=== PATIENT | female | born 1980 | race Two or more races ===

== ENCOUNTER 2017-12-07 21:08 | Inpatient (IN) | payer MEDICAID ==
[~2017-12-07] VITALS: Ht 152.4 cm; Wt 72.6 kg
--- NOTE | 2017-12-07 21:17 | NUR ---
PT BIB SELF C/O "ABD PAIN X1 HOUR; N/V" PT AOX3 RR EVEN AND UNLABORED. NO SOB NOTED. NAD NOTED. NO NVD AT THIS TIME. PT GOWNED AND PLACED ON MONITOR. DEMURRAGE CLERK DEGRASSI AT BEDSIDE FOR EVAL.
[2017-12-07 21:29] LABS: BASOPHILS # (AUTO) 0.1 /CMM (0.0-0.2); BASOPHILS % (AUTO) 0.4 % (0.0-2.0); EOSINOPHILS # (AUTO) 0.2 /CMM (0.0-0.7); EOSINOPHILS % (AUTO) 1.1 % (0.0-6.0); HEMATOCRIT 42 % (33-45); HEMOGLOBIN 14.2 g/dL (11.5-14.8); LYMPHOCYTES # (AUTO) 2.3 /CMM (0.8-4.8); LYMPHOCYTES % (AUTO) 15.6 % (20.0-44.0); MEAN CORPUSCULAR HEMOGLOBIN 27 PG (26.0-33.0); MEAN CORPUSCULAR HGB CONC 34 g/dl (31.0-36.0); MEAN CORPUSCULAR VOLUME 79 fL (82-100); MONOCYTES # (AUTO) 0.8 /CMM (0.1-1.30); NEUTROPHILS # (AUTO) 11.6 /CMM (1.8-8.9); NEUTROPHILS % (AUTO) 77.9 % (43.0-81.0); PLATELET COUNT (AUTO) 291 /CMM (150-450); RDW COEFFICIENT OF VARIATION 11.9 (11.5-15.0); RED BLOOD CELL COUNT(AUTO) 5.22 MIL/uL (4.0-5.2)
[2017-12-07] MEDS ORDERED: ONDANSETRON HCL/PF 4 MG/2 ML VIAL IVP ONE (21:30)
[2017-12-07] MEDS ORDERED: MORPHINE SULFATE INJ 2 MG/ML DISP.SYRIN IV ONE (21:30)
[2017-12-07] MEDS ORDERED: IV NS 0.9% 1,000 ML BAG IV ONE (21:30)
[2017-12-07] MEDS ORDERED: ONDANSETRON HCL/PF 4 MG/2 ML VIAL ONE (21:35)
[2017-12-07] MEDS ORDERED: MORPHINE SULFATE INJ 4 MG/ML DISP.SYRIN ONE (21:36)
[2017-12-07 21:40] LABS: APPEARANCE,URINE Clear (CLEAR); BILIRUBIN,URINE SMALL (NEGATIVE); BLOOD, URINE Negative Ery/uL (NEGATIVE); COLOR,URINE Yellow (YELLOW); KETONES,URINE Negative (NEGATIVE); LEUKOCYTE ESTERASE ,URINE Negative (NEGATIVE); NITRITE, URINE Negative (NEGATIVE); PH,URINE 5.5 (5.0-8.0); PROTEIN,URINE Negative (NEGATIVE); UGLUCOSE Negative (NEGATIVE); UROBILINOGEN,URINE 0.2 EU/dL (0.2)
--- NOTE | 2017-12-07 21:42 | NUR ---
MEDICATED PATIENT ORDERED.
--- NOTE | 2017-12-07 21:45 | NUR ---
BASIA AT BEDSIDE
[2017-12-07 21:48] LABS: ALBUMIN 4.2 g/dL (3.4-5.0); BILIRUBIN,DIRECT 0.1 mg/dL (0.0-0.2); BILIRUBIN,TOTAL 0.3 mg/dL (0.2-1.0); CALCIUM, SERUM 9.3 mg/dL (8.5-10.1); CREATININE 0.7 mg/dL (0.6-1.3); POTASSIUM 3.5 mmol/L (3.5-5.1)
[2017-12-07] MEDS ORDERED: LIDOCAINE 1%-EPI 1:100,000 20 ML VIAL ONE (21:48)
[2017-12-07 21:56] LABS: INR 0.92 (0.85-1.15)
--- NOTE | 2017-12-07 22:10 | NUR ---
CONSTANCE LYNCH ON THE PHONE WITH DR ARGUETA
--- NOTE | 2017-12-07 22:11 | NUR ---
CALLED [facility] FOR HIGHER LEVEL OF CARE TRANSPORTATION, I SPOKE WITH ANUM AND HE NOTIFIED ME THAT THEY HAVE NO AVAILABLE BEDS.
--- NOTE | 2017-12-07 22:42 | NUR ---
PAGED STEAM HAND CONSTANCE WINTER
--- NOTE | 2017-12-07 22:52 | NUR ---
CONSTANCE LYNCH ON THE PHONE WITH CONSTANCE WINTER REGARDING ADMISSION
--- NOTE | 2017-12-07 22:54 | NUR ---
PATIENT ASSIGNED MS 201 ADMITTING SLAB CONDITIONER SUPERVISOR TANNER WINTER
[2017-12-07 23:00] VITALS: BP 115/76
--- NOTE | 2017-12-07 23:14 | NUR ---
UPHOLSTERER INSIDE CATILAN AT BEDSIDE FOR EVAL.
--- NOTE | 2017-12-07 23:31 | NUR ---
REPORT GIVEN TO AMARILYS COBB FOR HERNAN.
--- NOTE | 2017-12-07 23:34 | NUR ---
PT TRANSFERRED VIA WC TO NE BED [id number]
[2017-12-08] VITALS: BP 115/76
--- NOTE | 2017-12-08 | NUR ---
MS CABINET PROFESSIONAL NOTES ADMITTED FROM ER PER WHEELCHAIR,WITH CHIEF COMPLAINTS OF ABDOMINAL PAIN X 1 HOUR,WITH N/V.AL/O X4,SPEAK WELSH,NO SKIN ISSUES.SALINE LOCK RIGHT AC INTACT AND PATENT.CALL LIGHT I REACH,NEEDS ANTICIPATED.
--- NOTE | 2017-12-08 | NUR ---
MS RN NOTES APPEARS WORRIED ABOUT ORDERED MEDICATIONS IF SHE REALLY NEEDS IT.CLAIMED SHE DOESNT HAVE INSURANCE.WILL REFER TO SOCIAL SERVICE FOR ASSISTANCE.
[2017-12-08] MEDS ORDERED: ONDANSETRON HCL/PF 4 MG/2 ML VIAL IVP PRN (00:30)
[2017-12-08] MEDS ORDERED: Z GUARD REMEDY 2 OZ OINT TP PRN (00:30)
[2017-12-08] MEDS ORDERED: ZOLPIDEM TARTRATE 5 MG TABLET PO PRN (00:30)
[2017-12-08] MEDS ORDERED: MAGNESIUM HYDROXIDE 30 ML UDC PO PRN (00:30)
[2017-12-08] MEDS ORDERED: ACETAMINOPHEN 325 MG TABLET PO PRN (00:30)
[2017-12-08] MEDS ORDERED: ENOXAPARIN SODIUM 40 MG/0.4 ML DISP.SYRIN SQ SCH (00:30)
[2017-12-08] MEDS ORDERED: HYDROCODONE/APAP 5/325MG 1 EACH TABLET PO PRN (00:30)
[2017-12-08] MEDS ORDERED: MAG HYDROX/AL HYDROX/SIMETH 30 ML UDC PO PRN (00:30)
[2017-12-08] MEDS ORDERED: MORPHINE SULFATE INJ 2 MG/ML DISP.SYRIN IV PRN (00:30)
[2017-12-08] MEDS ORDERED: PIPERACILLIN /TAZOBACTAM 3.375 G VIAL IV ONE (00:53)
[2017-12-08] MEDS ORDERED: PIPERACILLIN /TAZOBACTAM 3.375 G in IV D5W 100 ML IV ONE (01:00)
[2017-12-08] MEDS ORDERED: PIPERACILLIN /TAZOBACTAM 3.375 G in IV D5W 50 ML IV ONE (01:09)
[2017-12-08] MEDS: IV NS 0.9% 1,000 ML IV PRN ×2 (01:16→18:35)
--- NOTE | 2017-12-08 01:16 | NUR ---
MS RN NOTES STARTED ON NS 75ML/HR RATE ORDERED
--- NOTE | 2017-12-08 01:17 | NUR ---
MS RN NOTES STARTED ON ZOSYN 3.375GM IVPB ORDERED.NO ADVERSE REACTION NOTED.
[2017-12-08 06:29] LABS: BASOPHILS % (AUTO) 0.4 % (0.0-2.0); EOSINOPHILS # (AUTO) 0.1 /CMM (0.0-0.7); HEMATOCRIT 34 % (33-45); HEMOGLOBIN 11.4 g/dL (11.5-14.8); LYMPHOCYTES # (AUTO) 2.2 /CMM (0.8-4.8); LYMPHOCYTES % (AUTO) 24.5 % (20.0-44.0); MEAN CORPUSCULAR HEMOGLOBIN 28 PG (26.0-33.0); MEAN CORPUSCULAR HGB CONC 34 g/dl (31.0-36.0); MEAN CORPUSCULAR VOLUME 81 fL (82-100); MONOCYTES # (AUTO) 0.5 /CMM (0.1-1.30); MONOCYTES % (AUTO) 5.9 % (2.0-12.0); NEUTROPHILS # (AUTO) 6.2 /CMM (1.8-8.9); NEUTROPHILS % (AUTO) 68.2 % (43.0-81.0); PLATELET COUNT (AUTO) 215 /CMM (150-450); RDW COEFFICIENT OF VARIATION 12.5 (11.5-15.0); RED BLOOD CELL COUNT(AUTO) 4.13 MIL/uL (4.0-5.2); WHITE BLOOD COUNT (AUTO) 9.1 K/uL (4.3-11.0)
--- NOTE | 2017-12-08 06:34 | NUR ---
MS RN NOTES KEPT NPO ORDERED.IVF IN PROGRESS INFUSING VIA IV PUMP.NO PAIN AT THIS TIME.ABLE TO WALK TO THE TOILET.SOCIAL SERVICE CONSULT FOR NO INSURANCE.WORRIED ABOUT BILLS.CALL LIGHT IN REACH NEEDS ATTENDED.WILL ENDORSE TO DAY NURSE FOR HERNAN.
--- NOTE | 2017-12-08 06:37 | NUR ---
[facility] DR[facility].
[2017-12-08 07:03] LABS: CALCIUM, SERUM 7.8 mg/dL (8.5-10.1); CREATININE 0.6 mg/dL (0.6-1.3); MAGNESIUM 1.8 mg/dL (1.8-2.4); PHOSPHORUS 3.5 mg/dL (2.5-4.9); POTASSIUM 3.8 mmol/L (3.5-5.1)
--- NOTE | 2017-12-08 07:35 | NUR ---
MS RN NOTES FOR MRCP WITH OUT CONTRAST,MRI CHECKLIST DONE.
[2017-12-08 08:00] VITALS: BP 103/58
[2017-12-08] MEDS ORDERED: PIPERACILLIN /TAZOBACTAM 3.375 G in IV D5W 50 ML IV SCH (08:00)
--- NOTE | 2017-12-08 08:00 | NUR ---
MS 2 RN AM NOTES RECEIVED PT ALERT AND ORIENTED X4,SPEAK INDONESIAN/OCCITAN,NO SKIN ISSUES.DENIES PAIN AND WANTED TO TALK TO THE IRRIGATION FLUME LAYER BECAUSE SHE HAS NO HEALTH INSURANCE.PERIPHERAL IV TO RIGHT AC INTACT WITH IVF OF NS AT 75 ML/HR INFUSING WELL.CALL LIGHT WITHIN REACH.
[2017-12-08] MEDS: ENOXAPARIN SODIUM 40 MG/0.4 ML DISP.SYRIN SQ SCH (09:00)
[2017-12-08] MEDS: PANTOPRAZOLE 40 MG VIAL IV SCH (09:01)
[2017-12-08] MEDS ORDERED: CALC1TAB91 PO (09:34)
[2017-12-08] MEDS ORDERED: PREN1TAB23 PO (09:34)
[2017-12-08] MEDS ORDERED: FERR325T23 PO (09:34)
--- NOTE | 2017-12-08 10:00 | NUR ---
PT WAS PICKED UP FOR MRCP PROCEDURE WITH STABLE V/S.
[2017-12-08] MEDS ORDERED: HYDROMORPHONE INJ 0.5 MG/0.5 ML SYRINGE IV PRN (12:30)
[2017-12-08] MEDS: PIPERACILLIN /TAZOBACTAM 3.375 G in IV D5W 50 ML IV SCH ×3 (12:56→23:48)
--- NOTE | 2017-12-08 13:38 | NUR ---
FALQUITO received a call from pt's RN Nuha informing FLAQUITO that pt. stated she has no insurance and wants to apply for insurance. FLAQUITO called Nichelle Fraga, insurance liaison ([phone]) and left her a voicemail message informing her that pt. would like to apply for [employer]. Addendum: 12/08/17 at 1541 by SAIRA HUDDLESTON FLAQUITO received a call back from Nichelle informing FLAQUITO that pt. has [employer] insurance already. FLAQUITO met with pt. bedside and informed her that per Nichelle pt. has [employer] insurance.
[2017-12-08 16:00] VITALS: BP_SYST 103; BP_SYST 104; BP_DIAS 58
--- NOTE | 2017-12-08 18:00 | NUR ---
PT RESTING IN BED COMFORTABLY SLEEPING AND DOESN'T FEEL NAUSEOUS.ZOFRAN IV GIVEN WAS EFFECTIVE.WITH ONGOING IVF OF NS AT 75 ML/HR INFUSING WELL.WILL MONITOR.
--- NOTE | 2017-12-08 19:30 | NUR ---
MS2/RN RECEIVE PATIENT AWAKE, ALERT, ORIENTED, COMFORTABLE, NO C/O PAIN, NO DISTRESS NOTED, CALL LIGHT IN REACH. WILL MONITOR.
[2017-12-08 20:00] VITALS: BP 104/64
--- NOTE | 2017-12-08 21:21 | NUR ---
MS2/RN OTOLARYNGOLOGY PHYSICIAN OF DR. MARIAJOSE WATSON JUST FINISHED TALKING TO THE PATIENT RE: SURGERY.
--- NOTE | 2017-12-09 06:30 | NUR ---
MS2/RN PATIENT AWAKE, ALERT, ORIENTED, COMFORTABLE, NO CHANGE IN CONDITION, HAD A GOOD SLEEP THE WHOLE SHIFT. ALL NEEDS ATTENDED AT THIS TIME. WILL CONTINUE TO MONITOR.
[2017-12-09 06:32] LABS: CHOLESTEROL 152 mg/dL (<200); HDL CHOLESTEROL 26 mg/dL (40-60); LDL 96 mg/dL (0-99); TRIGLYCERIDES 177 mg/dL (30-150)
[2017-12-09] MEDS: PIPERACILLIN /TAZOBACTAM 3.375 G in IV D5W 50 ML IV SCH ×2 (06:38→14:05)
[2017-12-09 08:00] VITALS: BP 104/54
--- NOTE | 2017-12-09 08:20 | NUR ---
ms/rn notes received patient resting in bed comfortably, no s/s of distress/discomfort noted, in no apparent distress, respirations even and unlabored, on room air, alert and oriented, Tongan speaking with little Bengali. IV to right ac 18g intact infusing ns at 75cc/hr. on clear liquids diet, consumed 100% of breakfast. will continue to monitor
[2017-12-09 08:24] LABS: ALBUMIN 2.9 g/dL (3.4-5.0); BILIRUBIN,DIRECT 0.5 mg/dL (0.0-0.2); BILIRUBIN,TOTAL 1.4 mg/dL (0.2-1.0); TOTAL PROTEIN, SERUM 6.5 g/dL (6.4-8.2)
[2017-12-09] MEDS: PANTOPRAZOLE 40 MG VIAL IV SCH (08:44)
[2017-12-09] MEDS: ENOXAPARIN SODIUM 40 MG/0.4 ML DISP.SYRIN SQ SCH (08:47)
[2017-12-09 16:00] VITALS: BP 116/55
--- NOTE | 2017-12-09 17:55 | NUR ---
DISCHARGE NOTE ORDER RECEIVED FOR DISCHARGE,ALL DISCHARGE INSTRUCTIONS GIVEN TO PATIENT AND FAMILY, ALL FORMS SIGNED, COMPLETED, COPIED AND PLACED IN CHART. PRESCRIPTION PROVIDED TO PATIENT AND PROVIDED INSTRUCTIONS ON MEDICATION USAGE, DOSAGE, ROUTE, FREQUENCY. PATIENT/FAMILY VERBALIZED UNDERSTANDING. IV REMOVED AND COVERED PROPERLY. PATIENT AGREED TO DISCHARGE, LEFT FACILITY WITH VIA PRIVATE CAR.
== END 2017-12-09 18:00 | disposition home or self-care (01) ==
LOC: ER 21:12 → MEDSG2 23:12
PROVIDERS: ADMIT Nurse Practitioner Acute Care; ATTEND Nurse Practitioner Acute Care
DX: K80.20 Calculus of gallbladder without cholecystitis without obstruction (principal); K76.0 Fatty (change of) liver, not elsewhere classified; E66.9 Obesity, unspecified; D72.829 Elevated white blood cell count, unspecified; Z68.31 Body mass index [BMI] 31.0-31.9, adult
CPT/HCPCS: 36415; 74181-TC; 76705-TC; 80048-TC; 80061-TC; 80076-TC; 81000-TC; 83690-TC; 83735-TC; 84100-TC; 84484-TC; 84703-TC; 85025-TC; 85730-TC; 87081-TC; A4606; C9113; J1650; J2270; J2405; J2543; J3490; J7030; J7060; Z7610